=== PATIENT | male | born 1980 | race African-American/Black ===

== ENCOUNTER 2022-08-20 01:48 | Inpatient (IN) | payer MEDICARE, MEDICAID ==
[~2022-08-20] VITALS: Ht 175.3 cm; Wt 93.2 kg
[2022-08-20] MEDS ORDERED: ASPIRIN 81MG TABLET PO ONE (02:30)
[2022-08-20 03:04] LABS: BASOPHILS % 0.9 % (0.0-2.0); EOSINOPHILS % 4.6 % (0.0-5.0); HEMATOCRIT. 44.4 % (42.0-52.0); HEMOGLOBIN. 14.2 g/dL (14.0-18.0); LYMPHOCYTES % 27.8 % (20.0-50.0); MEAN CORPUSCULAR HEMOGLOBIN 25.6 pg (28.0-32.0); MEAN CORPUSCULAR VOLUME 80.3 fL (80.0-94.0); MEAN PLATELET VOLUME 8.1 fl (7.4-10.4); MONOCYTES % 7.8 % (2.0-8.0); NEUTROPHILS % 58.9 % (40.0-76.0); PLATELET 311 x1000/uL (130-400); RED BLOOD CELL COUNT 5.52 mill/uL (4.7-6.1); RED CELL DISTRIBUTION WIDTH 18.4 % (11.6-14.6)
[2022-08-20 03:12] LABS: CHLORIDE 101 mEq/L (98-107)
[2022-08-20 03:17] LABS: INR 1.4; PARTIAL THROMBOPLASTIN TIME 34.2 sec (23.4-31.0); PROTHROMBIN TIME 14.6 sec (9.6-11.0)
[2022-08-20] MEDS ORDERED: NITROGLYCERIN 0.4MG TABLET SL SL ONE (05:15)
[2022-08-20] MEDS ORDERED: KETOROLAC 15MG/ML VIAL IV PRN (07:00)
[2022-08-20] MEDS ORDERED: DEXTROSE 50% WATER 50ML SYRINGE IV PRN (07:00)
[2022-08-20] MEDS ORDERED: ONDANSETRON HCL 4MG/2ML INJ IV PRN (07:00)
[2022-08-20] MEDS ORDERED: NITROGLYCERIN 0.4MG TABLET SL SL PRN (07:00)
[2022-08-20] MEDS ORDERED: MAGNESIUM/ALUMINUM HYDROXIDE/SIMETHICONE 30ML UDC PO PRN (07:00)
[2022-08-20] MEDS ORDERED: ACETAMINOPHEN 325MG TABLET PO PRN ×2 (07:00)
[2022-08-20] MEDS ORDERED: IPRATROPIUM/ALBUTEROL 0.5-3(2.5)MG/3ML NEB NEB PRN (07:00)
[2022-08-20] MEDS ORDERED: DOCUSATE SODIUM 100MG CAPSULE PO PRN (07:00)
[2022-08-20] MEDS: INSULIN LISPRO 100 UNITS/ML SUBCUT SCH ×4 (08:20→21:00)
[2022-08-20 08:29] LABS: ETHANOL BLOOD < 10 mg/dL; HDL CHOLESTEROL 44 mg/dL (40-59); LDL CHOLESTEROL 92 mg/dL (5-100); T4 FREE 1.05 ng/dL (0.76-1.46); TOTAL IRON BINDING CAPACITY 461 ug/dL (250-450)
[2022-08-20] MEDS: BLOOD SUGAR DIAGNOSTIC STRIP TEST SCH ×4 (09:05→21:00)
[2022-08-20] MEDS: ENOXAPARIN 40MG/0.4ML SYR SUBCUT SCH (09:05)
[2022-08-20] MEDS: FAMOTIDINE 20MG TABLET PO SCH ×2 (09:06→21:33)
[2022-08-20] MEDS: CLONIDINE 0.1MG TABLET PO PRN ×2 (09:09→21:33)
[2022-08-20 10:00] VITALS: BP 179/107
[2022-08-20] MEDS ORDERED: METOPROLOL TARTRATE 5MG/5ML VIAL IV PRN (10:30)
[2022-08-20] MEDS ORDERED: NITROGLYCERIN SPRAY/4.9GM CAN TL NR (11:00)
[2022-08-20] MEDS: GUAIFENESIN 200MG/10ML SUGAR FREE UDC PO PRN ×2 (11:47→18:37)
[2022-08-20 12:00] VITALS: BP 141/101
[2022-08-20 12:12] VITALS: BP 179/107
[2022-08-20 12:35] LABS: VITAMIN B12 SERUM 230 pg/mL (211-911)
[2022-08-20] MEDS ORDERED: INFLUENZA VACCINE 05/PF 0.5 ML SYRINGE IM ONE (14:00)
[2022-08-20] MEDS ORDERED: PNEUMOCOCCAL 23-VAL P-SAC VAC 0.5 ML IM ONE (14:00)
[2022-08-20 16:00] VITALS: BP 143/86
[2022-08-20 20:00] VITALS: BP 168/112
[2022-08-20] MEDS: ZOLPIDEM TARTRATE 5MG TABLET PO PRN (21:33)
[2022-08-20 23:10] LABS: CREATINE KINASE 74 IU/L (39-308); CREATINE KINASE MB FRACTION < 1.0 ng/mL (0.5-3.6)
[2022-08-21] VITALS: BP_SYST 131; BP_SYST 141; BP_DIAS 100; BP_DIAS 103
[2022-08-21 04:00] VITALS: BP 131/100
[2022-08-21] MEDS: GUAIFENESIN 200MG/10ML SUGAR FREE UDC PO PRN (04:58)
[2022-08-21] MEDS: BLOOD SUGAR DIAGNOSTIC STRIP TEST SCH ×4 (06:42→20:13)
[2022-08-21 07:08] LABS: CHLORIDE 99 mEq/L (98-107); PHOSPHORUS 4.1 mg/dL (2.5-4.9)
[2022-08-21 07:09] LABS: BASOPHILS % 0.8 % (0.0-2.0); EOSINOPHILS % 5.3 % (0.0-5.0); HEMATOCRIT. 41.3 % (42.0-52.0); HEMOGLOBIN. 13.4 g/dL (14.0-18.0); LYMPHOCYTES % 28.2 % (20.0-50.0); MEAN CORPUSCULAR HEMOGLOBIN 25.8 pg (28.0-32.0); MEAN CORPUSCULAR VOLUME 79.6 fL (80.0-94.0); MEAN PLATELET VOLUME 8.5 fl (7.4-10.4); MONOCYTES % 9.5 % (2.0-8.0); NEUTROPHILS % 56.2 % (40.0-76.0); PLATELET 237 x1000/uL (130-400); RED BLOOD CELL COUNT 5.19 mill/uL (4.7-6.1); RED CELL DISTRIBUTION WIDTH 18.1 % (11.6-14.6)
[2022-08-21] MEDS: INSULIN LISPRO 100 UNITS/ML SUBCUT SCH ×4 (07:10→20:14)
[2022-08-21] MEDS: FAMOTIDINE 20MG TABLET PO SCH ×2 (09:06→20:12)
[2022-08-21] MEDS: ENOXAPARIN 40MG/0.4ML SYR SUBCUT SCH (09:06)
[2022-08-21] MEDS: ASPIRIN 325MG EC TABLET PO SCH (09:06)
[2022-08-21] MEDS ORDERED: METOPROLOL TARTRATE 5MG/5ML VIAL IV NR (09:15)
[2022-08-21 12:00] VITALS: BP 176/105
[2022-08-21 16:00] VITALS: BP 166/98
[2022-08-21] MEDS: CLONIDINE 0.1MG TABLET PO PRN (20:13)
[2022-08-21] MEDS: CARVEDILOL 3.125 MG TABLET PO SCH (20:13)
[2022-08-21] MEDS: ZOLPIDEM TARTRATE 5MG TABLET PO PRN (20:13)
[2022-08-21 20:25] VITALS: BP 210/116
[2022-08-21 23:58] VITALS: BP 127/80
[2022-08-22 04:00] VITALS: BP 120/74
[2022-08-22] MEDS: BLOOD SUGAR DIAGNOSTIC STRIP TEST SCH ×4 (05:50→20:28)
[2022-08-22] MEDS: INSULIN LISPRO 100 UNITS/ML SUBCUT SCH ×4 (06:10→20:28)
[2022-08-22 08:00] VITALS: BP 144/96
[2022-08-22] MEDS ORDERED: HEPARIN SODIUM 1,000 UNIT/1ML VIAL IV ONE (08:13)
[2022-08-22] MEDS ORDERED: IODIXANOL 320MG/ML 100 ML BOTTLE IV ONE (08:13)
[2022-08-22] MEDS ORDERED: LIDOCAINE HCL/PF 1% 10 MG/ML 5ML VIAL ONE ×2 (08:14→08:15)
[2022-08-22] MEDS: ENOXAPARIN 40MG/0.4ML SYR SUBCUT SCH (08:33)
[2022-08-22] MEDS: ASPIRIN 325MG EC TABLET PO SCH (08:33)
[2022-08-22] MEDS ORDERED: FENTANYL CITRATE/PF 50MCG/ML 2ML VIAL ONE (08:53)
[2022-08-22] MEDS ORDERED: MIDAZOLAM HCL 2 MG/2 ML VIAL ONE (08:53)
[2022-08-22] MEDS: CARVEDILOL 3.125 MG TABLET PO SCH ×2 (09:00→20:28)
[2022-08-22] MEDS: FAMOTIDINE 20MG TABLET PO SCH ×2 (09:00→20:27)
[2022-08-22 09:59] LABS: BG BASE EXCESS 3.3 mmol/L (-2.0-2.0); BG DEOXYHEMOGLOBIN 7.5 % (0.0-5.0); BG FRACTION INSPIRED OXYGEN 21; BG HCO3 ACT 28.1 mmol/L (22.0-26.0); BG METHEMOGLOBIN 0.5 % (0.0-1.5); BG OXYGEN SATURATION 92.4 % (92.0-98.5); BG PCO2 43.2 mmHg (35.0-45.0); BG PH 7.431 (7.350-7.450); BG PO2 64.2 mmHg (75.0-100.0); BG TOTAL HEMOGLOBIN 13.6 g/dL (12.0-18.0); BG VENT MODE ROOM AIR
[2022-08-22 10:01] LABS: BG BASE EXCESS 0.7 mmol/L (-2.0-2.0); BG CARBOXYHEMOGLOBIN 1.3 % (0.5-1.5); BG DEOXYHEMOGLOBIN 12.7 % (0.0-5.0); BG HCO3 ACT 24.9 mmol/L (22.0-26.0); BG METHEMOGLOBIN 0.2 % (0.0-1.5); BG OXYGEN SATURATION 87.1 % (92.0-98.5); BG OXYHEMOGLOBIN 85.8 % (94.0-97.0); BG PCO2 38.3 mmHg (35.0-45.0); BG PO2 51.8 mmHg (75.0-100.0); BG SAMPLE SITE Other; BG TOTAL HEMOGLOBIN 13.8 g/dL (12.0-18.0)
[2022-08-22] MEDS ORDERED: HYDRALAZINE 20MG/ML VIAL ONE (10:04)
[2022-08-22 10:09] LABS: BG BASE EXCESS -12.5 mmol/L (-2.0-2.0); BG DEOXYHEMOGLOBIN 14.8 % (0.0-5.0); BG HCO3 ACT 15.3 mmol/L (22.0-26.0); BG OXYGEN SATURATION 85.1 % (92.0-98.5); BG OXYHEMOGLOBIN 84.2 % (94.0-97.0); BG PCO2 43.4 mmHg (35.0-45.0); BG PH 7.166 (7.350-7.450); BG PO2 53.6 mmHg (75.0-100.0); BG SAMPLE SITE VBG - N/A; BG TOTAL HEMOGLOBIN 9.7 g/dL (12.0-18.0); BG VENT MODE MID RA
[2022-08-22 10:11] LABS: BG CARBOXYHEMOGLOBIN 1.2 % (0.5-1.5); BG HCO3 ACT 29.5 mmol/L (22.0-26.0); BG METHEMOGLOBIN 0.3 % (0.0-1.5); BG OXYGEN SATURATION 81.7 % (92.0-98.5); BG OXYHEMOGLOBIN 80.5 % (94.0-97.0); BG PH 7.407 (7.350-7.450); BG PO2 46.3 mmHg (75.0-100.0); BG SAMPLE SITE VBG - N/A; BG TOTAL HEMOGLOBIN 13.6 g/dL (12.0-18.0); BG VENT MODE HIGH RA
[2022-08-22 10:13] LABS: BG BASE EXCESS 3.9 mmol/L (-2.0-2.0); BG CARBOXYHEMOGLOBIN 1.1 % (0.5-1.5); BG DEOXYHEMOGLOBIN 37.4 % (0.0-5.0); BG HCO3 ACT 31.2 mmol/L (22.0-26.0); BG METHEMOGLOBIN 0.1 % (0.0-1.5); BG OXYGEN SATURATION 62.1 % (92.0-98.5); BG OXYHEMOGLOBIN 61.4 % (94.0-97.0); BG PCO2 58.7 mmHg (35.0-45.0); BG PH 7.343 (7.350-7.450); BG PO2 34.1 mmHg (75.0-100.0); BG SAMPLE SITE VBG - N/A; BG TOTAL HEMOGLOBIN 13.7 g/dL (12.0-18.0); BG VENT MODE RV
[2022-08-22 10:14] LABS: BG BASE EXCESS 2.1 mmol/L (-2.0-2.0); BG CARBOXYHEMOGLOBIN 1.3 % (0.5-1.5); BG DEOXYHEMOGLOBIN 26.5 % (0.0-5.0); BG METHEMOGLOBIN 0.3 % (0.0-1.5); BG OXYGEN SATURATION 73.1 % (92.0-98.5); BG OXYHEMOGLOBIN 71.9 % (94.0-97.0); BG PH 7.375 (7.350-7.450); BG PO2 37.8 mmHg (75.0-100.0); BG SAMPLE SITE VBG - N/A; BG TOTAL HEMOGLOBIN 13.6 g/dL (12.0-18.0); BG VENT MODE IVC
[2022-08-22 10:15] LABS: BG CARBOXYHEMOGLOBIN 1.4 % (0.5-1.5); BG DEOXYHEMOGLOBIN 24.6 % (0.0-5.0); BG HCO3 ACT 31.7 mmol/L (22.0-26.0); BG METHEMOGLOBIN 0.3 % (0.0-1.5); BG OXYHEMOGLOBIN 73.7 % (94.0-97.0); BG PCO2 50.4 mmHg (35.0-45.0); BG PH 7.417 (7.350-7.450); BG PO2 38.7 mmHg (75.0-100.0); BG SAMPLE SITE VBG - N/A; BG TOTAL HEMOGLOBIN 13.5 g/dL (12.0-18.0); BG VENT MODE PA 2
[2022-08-22 10:19] LABS: BG BASE EXCESS 2.2 mmol/L (-2.0-2.0); BG CARBOXYHEMOGLOBIN 1.1 % (0.5-1.5); BG DEOXYHEMOGLOBIN 24.5 % (0.0-5.0); BG HCO3 ACT 28.1 mmol/L (22.0-26.0); BG METHEMOGLOBIN 0.1 % (0.0-1.5); BG OXYGEN SATURATION 75.2 % (92.0-98.5); BG OXYHEMOGLOBIN 74.3 % (94.0-97.0); BG PCO2 48.6 mmHg (35.0-45.0); BG PO2 41.5 mmHg (75.0-100.0); BG SAMPLE SITE VBG - N/A; BG TOTAL HEMOGLOBIN 13.8 g/dL (12.0-18.0); BG VENT MODE PA 1
[2022-08-22 10:20] LABS: BG BASE EXCESS 0.7 mmol/L (-2.0-2.0); BG CARBOXYHEMOGLOBIN 1.3 % (0.5-1.5); BG DEOXYHEMOGLOBIN 23.2 % (0.0-5.0); BG HCO3 ACT 27.1 mmol/L (22.0-26.0); BG METHEMOGLOBIN 0.2 % (0.0-1.5); BG OXYGEN SATURATION 76.4 % (92.0-98.5); BG OXYHEMOGLOBIN 75.3 % (94.0-97.0); BG PCO2 50.7 mmHg (35.0-45.0); BG PH 7.346 (7.350-7.450); BG PO2 42.3 mmHg (75.0-100.0); BG SAMPLE SITE VBG - N/A; BG TOTAL HEMOGLOBIN 13.5 g/dL (12.0-18.0); BG VENT MODE SVC
[2022-08-22] MEDS ORDERED: HYDRALAZINE 20MG/ML VIAL IV NR (10:45)
[2022-08-22] MEDS ORDERED: PHENYLEPHRINE 100MCG/ML 10ML VIAL (CATH LAB) ONE (12:00)
[2022-08-22] MEDS ORDERED: NITROGLYCERIN 50MCG/ML 10ML VIAL (CATH LAB) IV ONE (12:00)
[2022-08-22] MEDS ORDERED: LORAZEPAM 2MG/ML CPJ IV NR (12:15)
[2022-08-22 16:00] VITALS: BP 154/93
[2022-08-22] MEDS: LISINOPRIL 5MG TABLET PO SCH (16:41)
[2022-08-22] MEDS: GUAIFENESIN 200MG/10ML SUGAR FREE UDC PO PRN (16:44)
[2022-08-22 20:00] VITALS: BP 197/118
[2022-08-22] MEDS: ZOLPIDEM TARTRATE 5MG TABLET PO PRN (20:28)
[2022-08-22] MEDS: CLONIDINE 0.1MG TABLET PO PRN (20:28)
[2022-08-22 21:30] VITALS: BP 133/107
[2022-08-22 23:26] LABS: *AMPHETAMINES SCREEN URINE NEGATIVE (NEGATIVE); *BARBITURATES SCREEN URINE NEGATIVE (NEGATIVE); *BENZODIAZEPINES SCREEN URINE NEGATIVE (NEGATIVE); *COCAINE SCREEN URINE NEGATIVE (NEGATIVE); CANNABINOID URINE SCREEN NEGATIVE (NEGATIVE); METHADONE URINE SCREEN NEGATIVE (NEGATIVE); OPIATES URINE SCREEN NEGATIVE (NEGATIVE); PHENCYCLIDINE URINE SCREEN NEGATIVE (NEGATIVE)
[2022-08-23] VITALS: BP 151/84
[2022-08-23] MEDS: CLONIDINE 0.1MG TABLET PO PRN ×2 (03:56→13:03)
[2022-08-23 04:00] VITALS: BP 160/108
[2022-08-23 05:30] VITALS: BP 155/97
[2022-08-23] MEDS: INSULIN LISPRO 100 UNITS/ML SUBCUT SCH ×2 (05:44→12:10)
[2022-08-23] MEDS: BLOOD SUGAR DIAGNOSTIC STRIP TEST SCH ×2 (05:44→11:40)
[2022-08-23 08:00] VITALS: BP 142/90
[2022-08-23] MEDS: CARVEDILOL 3.125 MG TABLET PO SCH (09:25)
[2022-08-23] MEDS: FAMOTIDINE 20MG TABLET PO SCH (09:25)
[2022-08-23] MEDS: ASPIRIN 325MG EC TABLET PO SCH (09:25)
[2022-08-23] MEDS: ENOXAPARIN 40MG/0.4ML SYR SUBCUT SCH (09:25)
[2022-08-23] MEDS: LISINOPRIL 5MG TABLET PO SCH (09:25)
[2022-08-23] MEDS ORDERED: ASPI-1160 PO (10:21)
[2022-08-23] MEDS ORDERED: LISI-186 MT (10:21)
[2022-08-23] MEDS ORDERED: COR6 MT (10:21)
[2022-08-23 11:33] VITALS: BP 142/90
[2022-08-23 15:02] VITALS: BP 123/81
[2022-08-23] MEDS ORDERED: CARVEDILOL 6.25 MG TABLET PO SCH (21:00)
== END 2022-08-23 15:20 | disposition home or self-care (01) | DRG 392 ==
LOC: ER 02:01 → 7EST 06:02 → ENRESERV 09:02
PROVIDERS: ADMIT Internal Medicine; ATTEND Internal Medicine
PROC: 4A023N8 Measurement of Cardiac Sampling and Pressure, Bilateral, Percutaneous Approach (ICD-10-PCS; principal; 2022-08-22)
PROC: B2111ZZ Fluoroscopy of Multiple Coronary Arteries using Low Osmolar Contrast (ICD-10-PCS; 2022-08-22)
PROC: B2151ZZ Fluoroscopy of Left Heart using Low Osmolar Contrast (ICD-10-PCS; 2022-08-22)
DX: K21.9 Gastro-esophageal reflux disease without esophagitis (principal); D68.9 Coagulation defect, unspecified; I27.20 Pulmonary hypertension, unspecified; I10 Essential (primary) hypertension; Z20.822 Contact with and (suspected) exposure to COVID-19; E11.9 Type 2 diabetes mellitus without complications; E88.09 Other disorders of plasma-protein metabolism, not elsewhere classified; E66.9 Obesity, unspecified; G47.33 Obstructive sleep apnea (adult) (pediatric); F41.9 Anxiety disorder, unspecified; F17.210 Nicotine dependence, cigarettes, uncomplicated; Z68.30 Body mass index [BMI] 30.0-30.9, adult; I25.2 Old myocardial infarction; Z79.899 Other long term (current) drug therapy
CPT/HCPCS: 36415; 36600; 71045; 80053; 80061; 80305; 80320; 82375; 82550; 82553; 82607; 82746; 82805; 82962; 83036; 83540; 83550; 83735; 83880; 84100; 84439; 84443; 84484; 85025; 85379; 87426; 90686; 90732; 93005; 93306; 93308; 93460; 93970; 99285; C1887; C1893; C1894; J0360; J1644; J1650; J1815; J2060; J2250; J2370; J2405; J3010; J3490; Q9967; G0480